=== PATIENT | male | born 1955 | race Caucasian/White ===

== ENCOUNTER → 2017-05-15 | Outpatient (CLI) | payer BC | LOC: BMCIMAGING 08:45 | PROVIDERS: ATTEND Internal Medicine Critical Care Medicine | DX: D86.9 Sarcoidosis, unspecified (principal) ==

== ENCOUNTER → 2018-04-15 | Outpatient (CLI) | payer BC | LOC: FIMAGING 15:09 | PROVIDERS: ATTEND Internal Medicine Critical Care Medicine | DX: D86.0 Sarcoidosis of lung (principal); J42 Unspecified chronic bronchitis ==